=== PATIENT | female | born 1990 | race Caucasian/White ===

== ENCOUNTER 2018-10-29 16:32 | Emergency (ER) | payer OTHER ==
[~2018-10-29] VITALS: Ht 172.7 cm; Wt 52.2 kg
[~2018-10-29 16:32] MED LIST: AMOXICILLIN500 M2 PO; AMOXICILLIN500 MG PO; BEYAZ; BIPOLAR MED; BIRTH CONTROL1 EAC1 PO; CARAFATE1 G1; CARAFATE1 GM PO; CIPRO500 MG PO; DEXILANT30 MG PO; EFFEXOR75 MG PO; HYDROCODONE BIT1 T11 PO; K-DUR20 MEQ PO; KEFLEX500 MG PO; KLONOPIN1 MG PO; LAMICTAL XR100 MG PO; LUVOX100 MG PO; MOTRIN800 MG PO; NORCO 10-325 T1 EACH PO; PRILOSEC40 MG PO; SUDAFED60 MG PO; VICODIN 5/500 505 MG PO; VIIBRYD40 PO; VISTARIL25 M1 PO; YASMIN 3 MG-0.01 TA1 PO; ZOFRAN ODT4 MG SL; [UNRECOGNIZED DRUG - REMARK]
== END 2018-10-29 17:30 | disposition home or self-care (01) ==
LOC: ED 16:32
DX: S70.362A Insect bite (nonvenomous), left thigh, initial encounter (principal); Z88.8 Allergy status to other drugs, medicaments and biological substances; W57.XXXA Bitten or stung by nonvenomous insect and other nonvenomous arthropods, initial encounter; Y93.89 Activity, other specified; Y92.89 Other specified places as the place of occurrence of the external cause; Y99.8 Other external cause status

== ENCOUNTER → 2018-12-17 | Outpatient (CLI) | payer OTHER ==
[2018-12-17 11:22] LABS: HEMATOCRIT 44.5 % (37.0-47.0); HEMOGLOBIN 15.1 g/dl (12.0-16.0); MEAN CELL VOLUME 95.7 fl (81.0-99.0); MEAN CORPUSCULAR HGB 32.5 pg (27.0-31.0); MEAN CORPUSCULAR HGB CONC 33.9 g/dl (33.0-37.0); MEAN PLATELET VOLUME 11.4 fl (9.6-12.3); RED BLOOD COUNT 4.65 10*6/uL (4.10-5.10); RED CELL DISTRI WIDTH 12.6 % (0-14.5); WHITE BLOOD COUNT 5.7 10*3/uL (4.8-10.8)
[2018-12-17 11:43] LABS: ALBUMIN 4.3 gm/dl (3.1-4.5); ALKALINE PHOSPHATASE 90 U/L (45-117); BUN 7 mg/dl (7-24); CHLORIDE 105 mmol/L (98-107); CREATININE 0.69 mg/dL (0.55-1.02); POTASSIUM 3.4 mmol/L (3.5-5.1); SGOT/AST 12 IU/L (3-35); SGPT/ALT 14 U/L (12-78); SODIUM 139 mmol/L (136-145); TOTAL PROTEIN 7.8 gm/dL (6.4-8.2)
== END | disposition home or self-care (01) ==
LOC: LAB 10:57
PROVIDERS: Family Medicine
DX: E55.9 Vitamin D deficiency, unspecified (principal)

== ENCOUNTER → 2020-09-05 | Outpatient (CLI) | payer OTHER ==
[2020-09-05 14:10] LABS: HEMATOCRIT 44.8 % (37.0-47.0); MEAN CELL VOLUME 94.3 fl (81.0-99.0); MEAN CORPUSCULAR HGB 31.4 pg (27.0-31.0); MEAN CORPUSCULAR HGB CONC 33.3 g/dl (33.0-37.0); MEAN PLATELET VOLUME 12.1 fl (9.6-12.3); RED BLOOD COUNT 4.75 10*6/uL (4.10-5.10); RED CELL DISTRI WIDTH 13.1 % (0-14.5); WHITE BLOOD COUNT 7.4 10*3/uL (4.8-10.8)
[2020-09-05 14:27] LABS: ALBUMIN 4.1 gm/dl (3.1-4.5); ALKALINE PHOSPHATASE 103 U/L (45-117); BUN 9 mg/dl (7-24); CHLORIDE 104 mmol/L (98-107); CHOLESTEROL 175 mg/dL (<200); LDL CHOLESTEROL 112 mg/dL (9-159); POTASSIUM 3.7 mmol/L (3.5-5.1); SGOT/AST 14 IU/L (3-35); SGPT/ALT 21 U/L (12-78); SODIUM 138 mmol/L (136-145); TOTAL PROTEIN 8.1 gm/dL (6.4-8.2); TRIGLYCERIDES 76 mg/dl (<150)
[2020-09-05 14:29] LABS: FREE T4 0.96 ng/dl (0.76-1.46)
[2020-09-05 14:33] LABS: THYROID STIM HORMONE (HS) 0.765 uIU/ml (0.358-4.75)
[2020-09-05 16:07] LABS: VITAMIN D, 25-HYDROXY 21.4 ng/mL (30-100)
== END | disposition home or self-care (01) ==
LOC: LAB 13:38
PROVIDERS: ATTEND Family Medicine
DX: E55.9 Vitamin D deficiency, unspecified (principal); E78.00 Pure hypercholesterolemia, unspecified; K21.9 Gastro-esophageal reflux disease without esophagitis; R53.83 Other fatigue; F41.1 Generalized anxiety disorder